=== PATIENT | female | born 1955 | race Caucasian/White ===

== ENCOUNTER 2023-07-13 07:59 | Day surgery (SDC) | payer MEDICARE, SELFPAY ==
[2023-07-13] VITALS (17 sets, daily range): BP systolic 141–204; BP diastolic 59–103; PULSE 85–128; RESP 6–18; TEMP 36.2–36.8; O2SAT 75–100; BMI 33.3
--- NOTE | 2023-07-13 | BR_PTH ---
PATIENT: ISIDORO MCGILL LOC: [facility] [place][id number] AGE/SX: 68/F ROOM: RE07/13/[address]: Dr. Michelle Valdes MD : 1955 BED: DIS: 07/13/2023 SPEC #: [id number] RECD: 07/13/23 14:53 STATUS: SHAUN REJosselin #: [id number] VANGIE: 07/13/23 00:[address]: Michelle Valdes DEPT: SURGICAL PATHOLOGY RECD BY: Yang Jerez ENTERED: 07/16/23 10:30 SP TYPE: MAMOPLASTY OTHR DR: Ary Primary Care Phys Tissues: A - Right breast, NOS B - Left breast, NOS Procedures: Surgery Specimen Level IV HEADER OPERATION: Bilateral breast reduction PRE-OP DIAGNOSIS: Breast ptosis, Chronic back pain, Breast hypertrophy TISSUE SUBMITTED: A- Right breast tissue- 206gm, B- Left breast tissue - 204gm MICROSCOPIC DIAGNOSIS A. Right breast tissue, breast reduction mammoplasty: Fragments of benign breast tissue (206gm). Focal microcalcifications. Skin, no pathologic diagnosis. B. Left breast tissue, breast reduction mammoplasty: Fragments of benign breast tissue (204gm). Skin, no pathologic diagnosis. / 07/18/23 MICROSCOPIC DESCRIPTION Slides are reviewed. GROSS DESCRIPTION A. Received in fixative is one container designated Right breast tissue. The multiple irregular fragments range in size from <0.1 to 8.5 cm and the larger fragments of dooley yellow fibrofatty tissue with attached skin that is grossly unremarkable. Seral sections reveal mostly yellow cut surfaces with no mass lesions (weighed in OR - 206 gm). Hose Tubing Backer sections are submitted in five cassettes. Sections are submitted after additional fixation. B. Received in fixative is one container designated Left breast tissue. The multiple irregular fragments range in size from <0.1 to 9.8 cm and the larger fragments of dooley yellow fibrofatty tissue with attached skin that is grossly unremarkable. Seral sections reveal mostly yellow cut surfaces with no mass lesions (weighed in OR- 204 gm). Hose Tubing Backer sections are submitted in five cassettes. Sections are submitted after additional fixation. / 07/16/23 TC: 5 CPT:41616t1
[2023-07-13] MEDS: Lactated Ringers 1,000 ML 15 ML IV (08:28)
--- NOTE | 2023-07-13 09:24 | PCM.HP.BLA ---
History and Physical Date of Admission: 07/13/23 The patient is examined and there are no changes from the H&P dated 06/18/2023. The patient presents with bilateral mammary hyperplasia and presents for bilateral reduction mammoplasty. Assessment & Plan Assessment/Plan (1) Breast ptosis: (2) Chronic back pain: (3) Breast hypertrophy: PLAN: Plan Patient for bilateral mammary reduction.
[2023-07-13] MEDS: Cefazolin 2 GM in 0.9% Normal Saline (100mL Bag) 100 ML IV (10:00)
[2023-07-13] MEDS: Gentamicin 80 MG/2 ML Vial (10:30)
[2023-07-13] MEDS: Methylene Blue 1% 100 MG/10 ML VIAL (10:30)
[2023-07-13] MEDS: Bupivacaine 0.25% 30 ML Vial (14:10)
--- NOTE | 2023-07-13 14:28 | DCINST_ITS ---
Discharge Instructions Dressing / Incision Additional Dressing/Incision Instructions:: Keep your back elevated (recliner position). Follow the instructions given in the office. Follow Up Care Please Follow Up With: Michelle Valdes MD When: In 1 week Test Results: Test results from this visit will be discussed in further detail at your follow- up appointment, if applicable. Discharge Plan Admission Attending Provider: Michelle Valdes Primary Care Provider: Care PhysicianAry Primary Discharge Orders/Prescriptions Prescriptions: No Action atorvastatin 20 mg tablet 20 mg PO DAILY multivitamin [Daily Multi-Vitamin] Tablet 1 tab PO DAILY cholecalciferol (vitamin D3) 75 mcg (3,000 unit) tablet 2,000 unit PO DAILY Rx Instructions: 2,000mg duloxetine 60 mg capsule,delayed release(DR/EC) 60 mg PO DAILY hydroxyzine HCl 25 mg tablet 25 mg PO QHS minoxidil 2.5 mg tablet 2.5 mg PO DAILY cephalexin 500 mg capsule 500 mg PO BID Qty: 14 0RF tramadol 50 mg tablet 50 mg PO Q8H PRN (Reason: pain) 4 Days Qty: 10 0RF Referrals / Follow Up: Care Physician,No Primary [Primary Care Provider] - Disposition Disposition (needs filled in before D/C Order can be placed): Home, Self Care
--- NOTE | 2023-07-13 14:30 | PCM.OPRPT ---
Problems Associated Problem List Diagnoses (1) Breast ptosis: (2) Chronic back pain: (3) Breast hypertrophy: Report of Operation Date of Procedure: 07/13/23 Pre-Operative Diagnosis: Bilateral mammary hypertrophy; chronic neck and shoulder pain Post-Operative Diagnosis: Same Surgery/Procedure Performed:: Bilateral breast reduction (left?204 g, right?206 g) Surgeon: Michelle Valdes online health and fitness coach: MORALES GREENsap security architect Type of Anesthesia: General Specimen's removed: Bilateral breast tissue Drains: None Estimated Blood Loss (mL): 25 cc Description of Procedure: The patient presents today for bilateral breast reduction. The patient's history is consistent with a breast reduction performed many years ago for which the records are not available. She is pursuing breast reduction because of chronic back pain and mammary hypertrophy. Informed consent was obtained. The potential risk and complications of surgery were reviewed which include but are not exclusive of bleeding, infection, pain, numbness, asymmetry, scar tissue, skin necrosis, the need for further surgery, DVT, and even . She is marked in the preop holding area prior to surgery. The patient is brought to the operating room and placed under general anesthesia in the supine position. Care is taken to pad all pressure points, apply sequential compression stockings, Stiles catheter, and a warming blanket. The breast and chest are prepped and draped in the usual sterile fashion. We initially began with incising all the incisions. Following this, the pedicle is de-epithelialized. Following this, the medial and lateral inferior aspects of the breast are removed. The upper flap is then developed by dissection cephalad maintaining a thickness of at least 2 cm. The remaining tissue is then trimmed in order to allow it to comfortably fit beneath the upper flap. The wound is irrigated with antibiotic solution and checked for meticulous hemostasis. Hemoblast is used for further assurance of hemostasis. The breast is then infolded and tacked together with silk suture and skin clips. With a satisfactory size and shape noted, would begin to close the incisions. Vicryl sutures were used in the subcutaneous tissue. The inframammary crease is closed in 3 layers using a barbed suture. Approximately 4 cm above the inframammary crease, the nipple areola is brought out through an incision and tacked in place initially with nylon sutures. A barbed suture was then used to close all incisions in a subcuticular fashion. The identical procedure was performed on the opposite side. A very thin layer of Nitropaste is put on the areolas as well as the T portions of the incision to promote vasodilatation and vascularity. 1/4% plain Marcaine is injected along all the incisions. Xeroform is placed on the incisions followed by fluff gauze and she is placed in a surgery bra. She tolerated the procedure well was taken to the recovery area in an awake and stable condition. Needle and sponge counts are correct. Complications None Admit VTE Documentation VTE Mechan Device Prophylaxis: SCD's
== END 2023-07-13 18:17 | disposition home or self-care (01) ==
LOC: SDC 08:02 → AC 08:03
PROVIDERS: Referring Provider Plastic Surgery; Visit Provider Plastic Surgery
PROC: 0H0U0ZZ Alteration of Left Breast, Open Approach (ICD-10-PCS; CPT 19318; principal; 2023-07-13 09:10)
DX: N64.81 Ptosis of breast (principal); M54.9 Dorsalgia, unspecified; N62 Hypertrophy of breast; G89.29 Other chronic pain; M25.519 Pain in unspecified shoulder; E78.00 Pure hypercholesterolemia, unspecified
CPT/HCPCS: 19318; 00402; 88305; J7120; J2405